=== PATIENT | female | born 1950 | race Two or more races ===

== ENCOUNTER 2017-01-28 01:47 | Emergency (ER) | payer OTHER ==
[~2017-01-28] VITALS: Ht 152.4 cm; Wt 60.8 kg
[2017-01-28 03:10] LABS: RED CELL DISTRIBUTION WIDTH 13.2 % (11.5-14.5)
[2017-01-28 03:24] LABS: PLATELET COUNT 93 x10^3mcL (130-400)
[2017-01-28 03:25] LABS: BASOPHIL % 6.5 % (0-2)
[2017-01-28 03:37] LABS: CALCIUM 8.9 mg/dL (8.5-10.1); CARBON DIOXIDE 20.5 mmol/L (21-32); POTASSIUM SERUM 3.6 mmol/L (3.5-5.1)
[2017-01-28 03:42] LABS: ALBUMIN 3.2 g/dL (3.4-5.0); BILIRUBIN TOTAL 0.96 mg/dL (0.20-1.00); TOTAL PROTEIN, SERUM 7.5 g/dL (6.4-8.2)
[2017-01-28 05:46] VITALS: BP 118/68
== END 2017-01-28 05:46 | disposition home or self-care (01) ==
LOC: ED 01:47
PROVIDERS: Emergency Medicine
DX: R10.32 Left lower quadrant pain (principal); K74.60 Unspecified cirrhosis of liver; E11.9 Type 2 diabetes mellitus without complications
CPT/HCPCS: 83880; J2270; J2405; J7030; Q0092